=== PATIENT | female | born 1980 | race Caucasian/White ===

== ENCOUNTER 2022-06-24 10:40 | Emergency (ER) | payer BC ==
[~2022-06-24] VITALS: Ht 157.5 cm; Wt 63.5 kg
[2022-06-24 11:05] VITALS: BP_SYST 148
--- NOTE | 2022-06-24 11:34 | NUR ---
URINE SAMPLE COLLECTED, LABELED AND SENT TO LAB.
[2022-06-24 12:02] LABS: BASOPHILS # (AUTO) 0.1 K/uL (0.0-0.2); BASOPHILS % (AUTO) 0.8 % (0.0-2.0); EOSINOPHILS # (AUTO) 0.1 K/uL (0.0-0.4); EOSINOPHILS % (AUTO) 1.3 % (0.0-4.0); HEMOGLOBIN 14.7 g/dL (12.0-16.0); LYMPHOCYTES # (AUTO) 1.7 K/uL (1.0-5.5); LYMPHOCYTES % (AUTO) 25.4 % (20.5-51.5); MEAN CORPUSCULAR HEMOGLOBIN 30 pg (27-31); MEAN CORPUSCULAR HGB CONC 33 % (32-36); MEAN CORPUSCULAR VOLUME 91 fL (79.0-98.0); MONOCYTES # (AUTO) 0.4 K/uL (0.0-1.0); MONOCYTES % (AUTO) 6.7 % (1.7-9.3); NEUTROPHILS # (AUTO) 4.4 K/uL (1.8-7.7); NEUTROPHILS % (AUTO) 65.8 % (40.0-70.0); PLATELET COUNT (AUTO) 230 K/uL (130-430); RED BLOOD CELL COUNT(AUTO) 4.83 MIL/uL (4.2-6.2); RED CELL DISTRIBUTION WIDTH 12.8 % (9.0-15.0); WHITE BLOOD COUNT (AUTO) 6.7 K/uL (4.8-10.8)
[2022-06-24 12:33] LABS: CALCIUM 9.4 mg/dL (8.4-11.0); CREATININE 0.83 mg/dL (0.55-1.30)
[2022-06-24 12:38] LABS: TOTAL BILIRUBIN 0.5 mg/dL (0.0-1.0)
[2022-06-24] MEDS ORDERED: TRAM50TA2 PO (13:57)
--- NOTE | 2022-06-24 15:00 | NUR ---
Patient given written and verbal discharge instructions and verbalizes understanding. ER MD discussed with patient the results and treatment provided. Patient in stable condition. Rx of given. Patient educated on pain management and to follow up with PMD. Pain Scale []. Opportunity for questions provided and answered. Medication side effect fact sheet provided.
== END 2022-06-24 15:00 | disposition home or self-care (01) ==
LOC: SED 10:40
DX: R10.31 Right lower quadrant pain (principal); Z79.899 Other long term (current) drug therapy
CPT/HCPCS: 36415; 76376; 80053; 81025; 85025; 99284